=== PATIENT | female | born 1970 | race Asian ===

== ENCOUNTER 2021-06-09 13:38 | Emergency (ER) | payer MEDICAID ==
[~2021-06-09] VITALS: Ht 165.1 cm; Wt 61.2 kg
[2021-06-09 13:47] VITALS: BP 97/73
--- NOTE | 2021-06-09 14:23 | NUR ---
PT SEEN AND EXAMINED BY .
--- NOTE | 2021-06-09 14:39 | NUR ---
PT IS BACK FROM THE CT SCAN.
[2021-06-09] MEDS ORDERED: IBUP-1955 PO (15:36)
--- NOTE | 2021-06-09 15:56 | NUR ---
Patient discharged to home in stable condition. Written and verbal after care instructions given. Patient verbalizes understanding of instruction.
== END 2021-06-09 15:57 | disposition home or self-care (01) ==
LOC: ER 13:42
DX: S16.1XXA Strain of muscle, fascia and tendon at neck level, initial encounter (principal); S09.90XA Unspecified injury of head, initial encounter; W18.2XXA Fall in (into) shower or empty bathtub, initial encounter; Y93.89 Activity, other specified; Y92.89 Other specified places as the place of occurrence of the external cause; Y99.8 Other external cause status
CPT/HCPCS: 70450-TC; 72125-TC